=== PATIENT | male | born 1955 | race American Indian/Alaskan Native ===

== ENCOUNTER 2019-12-12 13:21 | Emergency (ER) | payer MEDICARE ==
[2019-12-12 14:08] LABS: Amphetamine Screen,Urine PRESUMPTIVE NEGATIVE; Benzodiazepines Screen,Urine PRESUMPTIVE NEGATIVE; Cannabinoid Screen,Urine PRESUMPTIVE NEGATIVE; Cocaine Screen,Urine PRESUMPTIVE NEGATIVE; Methadone Screen,Urine PRESUMPTIVE NEGATIVE; Opiate Screen,Urine PRESUMPTIVE NEGATIVE
[2019-12-12] MEDS ORDERED: IBUPROFEN 800 MG TAB PO ONE (14:13)
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
--- NOTE | 2019-12-12 14:56 | XRay Report ---
RIGHT HIP 2 VIEWS INDICATION: right hip pain. COMPARISON: None. IMPRESSION: No acute osseous or soft tissue abnormality. No significant DJD. Signer Name: Khurram Bennett Jr, MD Signed: 12/12/2019 2:51 PM Workstation Name: [id number]
[2019-12-12 17:35] VITALS: BP 152/92
== END 2019-12-12 18:08 | disposition home or self-care (01) ==
LOC: ED 13:21
DX: R42 Dizziness and giddiness (principal); M25.551 Pain in right hip; F17.200 Nicotine dependence, unspecified, uncomplicated; Z98.890 Other specified postprocedural states
CPT/HCPCS: 80307